=== PATIENT | male | born 1995 | race Caucasian/White ===

== ENCOUNTER 2017-09-05 10:12 | Emergency (ER) | payer OTHER ==
[~2017-09-05] VITALS: Ht 175.3 cm; Wt 72.1 kg
[2017-09-05 10:47] VITALS: BP 000/00
[2017-09-05 12:39] LABS: BASOPHIL (%) 0.3 % (0-1); EOSINOPHIL (%) 0 % (0-5); HEMATOCRIT 42.6 % (38.0-50.0); HEMOGLOBIN 14.4 G/DL (12.5-16.6); IMMATURE GRANULOCYTE (%) 0.2 % (0.0-0.7); LYMPHOCYTE (%) 6.3 % (15-42); LYMPHOCYTE COUNT 0.8 K/uL (1.0-2.8); MCH 30.5 PG (29.0-34.0); MCHC 33.8 G/DL (30.0-36.0); MCV 90.3 FL (86-99); MONOCYTE (%) 4.7 % (3-12); MONOCYTE COUNT 0.6 K/uL (0-0.8); NEUTROPHIL (%) 88.5 % (45-76); PLATELET COUNT 293 K/uL (156-360); RBC DIS.WIDTH-CV 12.3 % (11.8-14.6); RBC DIS.WIDTH-SD 40.4 % (39-53); RED BLOOD COUNT 4.72 M/uL (4.00-5.50); WHITE BLOOD COUNT 12.4 K/uL (4.1-10.2)
[2017-09-05 12:48] LABS: CHLORIDE 103 mEq/L (99-109); POTASSIUM 3.7 mEq/L (3.7-5.4); SODIUM 140 mEq/L (136-147)
[2017-09-05 12:49] LABS: GLUCOSE 96 mg/dL (70-99)
[2017-09-05 12:53] LABS: GFR ESTIMATE (CALCULATED) > 59 mL/min/ (58.99-99999)
[2017-09-05 12:54] LABS: UREA NITROGEN (BUN) 17 mg/dL (9-23)
[2017-09-05] MEDS ORDERED: ZOFRAN ODT4 MG PO (13:02)
[2017-09-05] MEDS ORDERED: PREDNISONE10 MG PO (13:03)
== END 2017-09-05 14:01 | disposition home or self-care (01) ==
LOC: RME 10:12 → EME 10:12 → RME 14:01
PROVIDERS: Physician Assistant
DX: M54.16 Radiculopathy, lumbar region (principal); R11.0 Nausea; F41.9 Anxiety disorder, unspecified; Z88.0 Allergy status to penicillin
CPT/HCPCS: 80048; 85025; 99281; 99284